=== PATIENT | male | born 1935 | race Caucasian/White ===

== ENCOUNTER 2017-11-29 14:19 | Emergency (ER) | payer MEDICARE ==
[~2017-11-29] VITALS: Ht 167.6 cm; Wt 106.6 kg
[2017-11-29] MEDS ORDERED: NEURONTIN400 MG PO (14:32)
[2017-11-29] MEDS ORDERED: LASIX40 MG PO (14:33)
[2017-11-29] MEDS ORDERED: FLOMAX0.4 MG PO (14:33)
[2017-11-29] MEDS ORDERED: ISOSORBIDE MONO60 MG PO (14:33)
[2017-11-29] MEDS ORDERED: ASPIR 8181 MG PO (14:34)
[2017-11-29] MEDS ORDERED: RANEXA500 MG PO (14:34)
[2017-11-29] MEDS ORDERED: DIOVAN80 MG PO (14:34)
[2017-11-29] MEDS ORDERED: LEVOTHYROXINE50 MCG PO (14:34)
[2017-11-29] MEDS ORDERED: METOPROLOL SUCC50 MG PO (14:35)
[2017-11-29] MEDS ORDERED: AMLODIPINE BESYL5 MG PO (14:35)
[2017-11-29] MEDS ORDERED: LIPITOR40 MG PO (14:35)
[2017-11-29] MEDS ORDERED: LANTUS100 UNITS/ SUB-Q (14:36)
[2017-11-29] MEDS ORDERED: B COMPLEX # 11 EACH PO (14:36)
[2017-11-29] MEDS ORDERED: VITAMIN D50000 UNI1 PO (14:37)
--- NOTE | 2017-11-29 21:57 | EKG ---
[facility] [address] [facility] [place] [address] Signed Sinus bradycardia with 1st degree AV block Left axis deviation Left ventricular hypertrophy Nonspecific ST and T wave abnormality Abnormal ECG No previous ECGs available Confirmed by ENOCH DA SILVA MD ([id number] on 11/29/2017 9:57:05 PM Electronically Signed By: ENOCH DA SILVA MD 11/29/17 2157 PATIENT NAME: LASHONDA BONNER Electrocardiogram DATE OF : 31 PHYSICIAN: ENOCH DA SILVA MD REPORT #: [id number] REPORT IS CONFIDENTIAL AND NOT TO BE RELEASED WITHOUT AUTHORIZATION
== END 2017-11-29 18:56 | disposition home or self-care (01) ==
LOC: ED 14:19
DX: R53.1 Weakness (principal); E11.9 Type 2 diabetes mellitus without complications; I50.9 Heart failure, unspecified; Z87.891 Personal history of nicotine dependence; Z88.0 Allergy status to penicillin; Z88.8 Allergy status to other drugs, medicaments and biological substances; Z79.4 Long term (current) use of insulin; Z79.82 Long term (current) use of aspirin; Z79.899 Other long term (current) drug therapy
CPT/HCPCS: 80053; 83880; 84484; 85025; 93005; 93010; 99284